=== PATIENT | female | born 1985 ===

== ENCOUNTER 2018-07-02 01:01 | Emergency (ER) | payer BC ==
[2018-07-02 01:29] VITALS: O2SAT 100
[2018-07-02] MEDS ORDERED: Sodium Chloride 0.9% 1,000 ML IV STA ×2 (02:47→05:57)
--- NOTE | 2018-07-02 02:49 | ED PDOC ---
HPI: Abdomen Time Seen by Provider: 07/02/18 02:30 Chief Complaint (Nursing): GI Problem Chief Complaint (Provider): abdominal pain History Per: Patient History/Exam Limitations: no limitations Onset/Duration Of Symptoms: Hrs Current Symptoms Are (Timing): Still Present Location Of Pain/Discomfort: Epigastric Associated Symptoms: Nausea, Vomiting Additional History Per: Patient Additional Complaint(s): 33 y/o female presents for evaluation of abdominal pain x 8 hours. Associated vomiting x 1. Patient states her child is admitted in the hospital for a stomach virus. Denies fever, cough, congestion, chest pain, shortness of breath, palpitations, changes in bowel movements, urinary symptoms. Past Medical History Reviewed: Historical Data, Nursing Documentation, Vital Signs Vital Signs: Last Vital Signs Temp 98.9 F 07/02/18 01:14 Pulse 89 07/02/18 01:14 Resp 17 07/02/18 01:14 BP 119/75 07/02/18 01:14 Pulse Ox 100 07/02/18 01:14 - Medical History PMH: No Chronic Diseases - Surgical History Surgical History: No Surg Hx - Family History Family History: States: No Known Family Hx - Living Arrangements Living Arrangements: With Family - Home Medications Home Medications: Ambulatory Orders Medication Instructions Recorded Famotidine [Pepcid] 20 mg PO BID #20 tab 07/02/18 Ondansetron ODT [Zofran ODT] 4 mg PO Q8 PRN #10 odt 07/02/18 - Allergies Allergies/Adverse Reactions: Allergies Allergy/AdvReac Type Severity Reaction Status Date / Time No Known Allergies Allergy Verified 07/02/18 01:29 Review of Systems ROS Statement: Except As Marked, All Systems Reviewed And Found Negative Gastrointestinal: Positive for: Nausea, Vomiting, Abdominal Pain Physical Exam - Reviewed Nursing Documentation Reviewed: Yes Vital Signs Reviewed: Yes - Physical Exam Appears: Positive for: Well, Non-toxic, No Acute Distress Head Exam: Positive for: ATRAUMATIC, NORMAL INSPECTION, NORMOCEPHALIC Skin: Positive for: Normal Color Eye Exam: Positive for: Normal appearance ENT: Positive for: Normal ENT Inspection Cardiovascular/Chest: Positive for: Regular Rate, Rhythm Respiratory: Positive for: Normal Breath Sounds Gastrointestinal/Abdominal: Positive for: Bowel Sounds, Soft, Tenderness (epigastric) Back: Positive for: Normal Inspection Extremity: Positive for: Normal ROM Neurological/Psych: Positive for: Awake, Alert, Oriented (x3) - Laboratory Results Result Diagrams: 07/02/18 02:56 07/02/18 02:56 - ECG O2 Sat by Pulse Oximetry: 100 - Progress ED Course And Treament: -cbc -cmp -lipase -IV NS bolus -IV pepcid -IV zofran Patient vomited after PO challenge. Patient denies abdominal pain states she just feels nauseous IV reglan, IVF ordered Disposition - Clinical Impression Clinical Impression: Gastroenteritis - Patient ED Disposition Is Patient to be Admitted: No - Disposition Disposition Time: 06:00 Condition: STABLE Prescriptions: Famotidine [Pepcid] 20 mg PO BID #20 tab Ondansetron ODT [Zofran ODT] 4 mg PO Q8 PRN #10 odt PRN Reason: Nausea/Vomiting Instructions: Viral Gastroenteritis Forms: [employer] [facility] ([place]), [facility] ED School/Work Excuse Patient Signed Over To: Ole Scott Handoff Comments: pending meds and re-eval
[2018-07-02 03:05] LABS: BASO % 0.1 % (0.0-2.0); EOS # 0.1 K/uL (0.0-0.7); EOS % 0.5 % (0.0-4.0); LYMPH # 0.5 K/uL (1.0-4.3); LYMPH % 4.5 % (20.0-40.0); MEAN CORPUSCULAR HEMOGLOBIN 32.2 pg (27.0-31.0); MEAN CORPUSCULAR HGB CONC 34.3 g/dL (33.0-37.0); MEAN PLATELET VOLUME 10.3 fl (7.2-11.7); MONO # 0.5 K/uL (0.0-0.8); MONO % 5.2 % (0.0-10.0); NEUT # 9.2 K/uL (1.8-7.0); NEUT % 89.7 % (50.0-75.0); NRBC % 0.1 % (0.0-0.0); PLATELET COUNT 212 K/uL (130-400); RBC 4.65 Mil/uL (3.80-5.20); RED CELL DISTRIBUTION WIDTH 12.3 % (11.5-14.5); WHITE BLOOD COUNT 10.2 K/uL (4.8-10.8)
[2018-07-02 03:12] LABS: ALB/GLOB RATIO 1.2 (1.0-2.1); ALBUMIN 4.6 g/dL (3.5-5.0); ALT/SGPT 38 U/L (9-52); AST/SGOT 32 U/L (14-36); BLOOD UREA NITROGEN 16 mg/dl (7-17); CALCIUM 9.4 mg/dL (8.4-10.2); GFR NON-AFRICAN AMERICAN > 60; LIPASE 168 U/L (23-300)
[2018-07-02 03:48] LABS: BANDS 1 % (0-2); LYMPHOCYTE 6 % (20-50); MONOCYTE 5 % (0-10); NEUTROPHIL 88 % (42-75); PLATELET ESTIMATE NORMAL (NORMAL); TOTAL CELLS COUNTED 100
--- NOTE | 2018-07-02 08:20 | ED PDOC ---
- Laboratory Results Result Diagrams: 07/02/18 02:56 07/02/18 02:56 Lab Results: Total Bilirubin 0.7 mg/dl (0.2-1.3) 07/02/18 02:56 AST 32 U/L (14-36) 07/02/18 02:56 ALT 38 U/L (9-52) 07/02/18 02:56 Alkaline Phosphatase 57 U/L (38-126) 07/02/18 02:56 Total Protein 8.4 G/DL (6.3-8.2) H 07/02/18 02:56 Albumin 4.6 g/dL (3.5-5.0) 07/02/18 02:56 Globulin 3.8 gm/dL (2.2-3.9) 07/02/18 02:56 Albumin/Globulin Ratio 1.2 (1.0-2.1) 07/02/18 02:56 Lipase 168 U/L (23-300) 07/02/18 02:56 - ECG O2 Sat by Pulse Oximetry: 100 Medical Decision Making Medical Decision Making: Time: Initial Impression: Initial Plan: Signed out to Dr. Granado by Dr. Scott. Pt has multiple episodes of vomitting and nauseas. exams were remarkable with bengin abdomen, and curently on IV fluids. labs showing normal WBC. Was given Zofran. If symptoms improve will discharge home and if not will get a CT scan. will revaluate at 8am. 816 Patient is tolerating PO. Complete results and will follow up with PMD. Scribe Attestation: Documented by Kamla Downing, acting as a scribe for Kenia Ram Provider Scribe Attestation: All medical record entries made by the Scribe were at my direction and personally dictated by me. I have reviewed the chart and agree that the record accurately reflects my personal performance of the history, physical exam, medical decision making, and the department course for this patient. I have also personally directed, reviewed, and agree with the discharge instructions and disposition. Disposition - Clinical Impression Clinical Impression: Gastroenteritis - POA Present On Arrival: None - Disposition Disposition: Routine/Home Disposition Time: 08:16 Condition: STABLE Additional Instructions: Increase rest and hydration while symptoms last. Follow up with primary medical doctor as needed. Prescriptions: Famotidine [Pepcid] 20 mg PO BID #20 tab Ondansetron ODT [Zofran ODT] 4 mg PO Q8 PRN #10 odt PRN Reason: Nausea/Vomiting Instructions: Viral Gastroenteritis Forms: [employer] ([place]ian), [facility] ED School/Work Excuse
[2018-07-02 08:59] VITALS: BP 126/62; PULSE 94; RESP 18; TEMP 991
== END 2018-07-02 08:57 | disposition home or self-care (01) ==
LOC: H.ER 01:01
DX: K52.9 Noninfective gastroenteritis and colitis, unspecified (principal)
CPT/HCPCS: 80053; 81025; 83690; 85025; 96361; 96365; 96375; 96376; 99285; J2405; J2765; J7030